=== PATIENT | male | born 1990 | race Caucasian/White ===

== ENCOUNTER 2025-10-02 10:36 | Emergency (ER) | payer OTHER, SELFPAY ==
--- NOTE | 2025-10-02 | ECG_ITS ---
Test Reason : numbness Blood Pressure : */* mmHG Vent. Rate : 65 BPM Atrial Rate : 65 BPM P-R Int : 142 ms QRS Dur : 86 ms QT Int : 384 ms P-R-T Axes : 51 59 26 degrees QTcB Int : 399 ms Normal sinus rhythm Normal ECG No previous ECGs available Referred By: Generic ED Physician Electronically Signed By: COREEN ELDER
--- NOTE | ~2025-10-02 | CT_ITS ---
EXAMINATION: CT HEAD WITHOUT CONTRAST CLINICAL INFORMATION: Left-sided weakness. COMPARISON: 02/08/2018. TECHNIQUE: Contiguous axial imaging was performed from the skull base to vertex without intravenous administration of contrast. This CT examination was performed using dose optimization techniques as appropriate, variously including the following: *Automated exposure control *Adjustment of mA and/or kV according to patient size (this includes techniques or standardized protocols for targeted exams where dose is matched to indication/reason for exam; i.e. extremities or head) *Use of iterative reconstruction technique FINDINGS: There is no evidence of intracranial hemorrhage or extra-axial fluid collection. There is no mass effect, or edema. No CT evidence of acute territorial infarct. Ventricles, sulci, and cisterns are normal in size and configuration for patient age. No hydrocephalus. No midline shift. Negative hyperdense MCA sign. Negative insular ribbon sign. There are no white matter attenuation abnormalities. Normal pituitary. Globes and orbital contents image normally. No extracranial soft tissue abnormalities. The paranasal sinuses, mastoid air cells, and tympanic cavities are normally aerated. No suspicious bony abnormalities. There are no acute fractures evident. CT/CT head/brain wo IV con IMPRESSION: No acute intracranial abnormality. Normal examination. Electronically signed by: Mina Cardozo MD 10/02/2025 02:27 PM [facility]
[2025-10-02 10:50] VITALS: BP 126/81; PULSE 68; RESP 18; TEMP 36.6; O2SAT 98; BMI 27.5
--- NOTE | 2025-10-02 10:50 | ED.GENADULT ---
[facility] - General Adult General Chief complaint: Neuro Symptoms/Deficit Stated complaint: CP, left side numbness Time Seen by Provider: 10/02/25 11:58 Source: patient Mode of arrival: ambulatory Limitations: no limitations History of Present Illness ED Provider: [facility] narrative: 35-year-old male with a history of anxiety disorder, on duloxetine, risperidone, lamotrigine, clonidine works as a delivery driver/supervisor, vapes nicotine and smokes marijuana, no other drug use hand, blurred vision in his left eye, facial numbness, this has been going on for the past 1 week, he states it is intermittent and recurring, he feels numbness and weakness in his left hand 3rd and 4th digits. He is under lot of stress Nonspecific chest pain, nonradiating not radiating to the back, not radiating to his face or shoulder not associated with nausea or vomiting or diaphoresis. No family history of heart disease or stroke at an early age reported. There is an aunt who has a stroke but later in life in the 50s Father at bedside as well, reports mom is a nurse. Related Data Allergies Allergy/AdvReac Type Severity Reaction Status Date / Time No Known Allergies Allergy Verified 10/02/25 10:53 Review of Systems Constitutional: Constitutional: Reports as per [facility] Social History Social History Smoked in Last 30 Days: No Use of substances other than those prescribed or required for medical reasons: Yes Substance Use Type: Marijuana Substance Use Frequency: Daily Advance Directives: No Advance Directives Information Provided: Yes Do you have a plan to hurt others: No Plan Physical Exam ED Exam Exam: ?General: ??looks age appropriate ?PERRLA, EOMI, MMM, Neck: Supple, no LAD ?CV: RRR, no obvious murmurs appreciated ?Resp: ?No wheezing rales rhonchi no stridor moving air well Abd: ?Bowel sounds are present, no tenderness no rebound no rigidity MSK: FROM, strength 5/5 all extremities, I did not elicit any Tinel sign over the carpal tunnel, good strength radial ulnar median motor sensory, had good strength up in his shoulders elbows wrists bilaterally as well as bilateral lower extremities Skin: Warm, dry, intact, ?Neuro: ?Alert and oriented x3, moving upper and lower extremities symmetrically, no obvious facial asymmetry noted, cranial nerves 2-12 intact, no dysmetria upper or lower extremities, pupils 3 mm reactive bilaterally Vital Signs: Vital Signs - 24 hr 10/02/25 10:50 10/02/25 12:00 Temperature 97.8 F Pulse Rate 68 56 Respiratory Rate 18 16 Blood Pressure 126/81 136/83 Pulse Oximetry 98 99 Oxygen Delivery Method Room Air Room Air BMI result Body Mass Index 27.5 Course Course Course Narrative: Rapid medical examination performed in triage by Vidhi Reddy PA-C: Patient is a 35 year old assigned male at presenting to the emergency department with left sided numbness, tingling, and weakness. Patient states symptoms started 7 days ago. Detailed physical exam and review of systems are deferred to the printing table worker. EKG and labs ordered. Patient placed back in the waiting room pending room availability and results. Medical Decision Making Medical Decision Making [facility] Narrative: 1:04 PM 10/02/2025 (Dr. Joey Love): I discussed my differential with the patient, he is otherwise healthy 35-year-old male with a some risk factors such as smoking, he does have history of anxiety and he is under lot of stress so I think there is some somatization with intermittent numbness in his face, blurry vision left arm, I believe he has components of carpal tunnel syndrome and just overall he drives and he is either sleeping on his left side with his weight on the shoulder or he is sitting with his shoulder lifted so there was some degree is compression and he has been experiencing other symptoms, with that said as I discussed with the patient I am going to perform full workup, cardiac, neurologic, I have low suspicion for stroke as his symptoms has been intermittent and his examination at this time is completely unremarkable, but if he had a small stroke he for example small stye thalamic stroke 7 days later it would be a should be visible on the CT without IV contrast. Other considerations include neck injury, brachial plexus injury, impingement of the shoulder ulnar nerve or median nerve. We spoke about lifestyle changes, smoking cessation, exercise. Differential Diagnosis Differential Diagnoses: The differential diagnosis associated with the presentation includes (Stroke, ACS, PE, peripheral neuropathy, anxiety) Admission/Observation Consideration of admission/observation: Escalation of care including admission/observation considered Lab Data [facility] Lab Attestation statement: I reviewed the patient's lab results. 10/02/25 11:09 12/05/25 11:09 Labs: Lab Results 10/02/25 Range/Units 11:09 WBC 8.1 (4.8-10.8) X10*3/uL RBC 5.40 (4.60-5.80) X10*6/uL Hgb 16.3 (14.0-18.0) g/dl Hct 49.0 (42.0-52.0) % MCV 90.7 (80.0-98.0) fL MCH 30.2 (27.0-33.0) pg MCHC 33.3 (31.0-36.0) g/dl RDW 11.8 (11.0-16.0) % Plt Count 256 (160-400) X10*3/uL MPV 9.7 (9.4-12.4) fL Immature Gran % (Auto) 0.2 (0.0-0.4) % Neut % (Auto) 70.6 (45-73) % Lymph % (Auto) 24.6 (20-40) % Gibson % (Auto) 4.3 (2-11) % Eos % (Auto) 0.2 (0-4) % Baso % (Auto) 0.1 (0-2) % Lymph # (Auto) 2.0 (1.2-4.9) X10*3/uL Gibson # (Auto) 0.4 (0.1-1.2) X10*3/uL Eos # (Auto) 0.0 (0.0-0.4) X10*3/uL Baso # (Auto) 0.0 (0.0-0.2) X10*3/uL Abs Immat Gran (auto) 0.02 (0.00-0.03) X10*3/uL Absolute Neuts (auto) 5.7 (2.0-8.3) x10*3/uL Absolute Nucleated RBC 0.000 (0.0-0.012) X10*3/uL Nucleated RBC % (auto) 0.0 (0.0-0.2) /100WBC ESR 8 (0-15) MM/HR Sodium 141 (135-145) mmol/L Potassium 4.0 (3.3-5.1) mmol/L Chloride 108 (96-108) mmol/L Carbon Dioxide 24 (22-29) mmol/L Anion Gap 13 (12-20) BUN 7 L (9-16) mg/dL Creatinine 0.95 (0.5-1.4) mg/dL Estim Creat Clear Calc 114.4 Estimated GFR > 60 Random Glucose 104 (60-115) mg/dL Calcium 10.1 (8.4-10.2) mg/dL Magnesium 2.0 (1.6-2.6) mg/dL Total Bilirubin 0.6 (0.0-1.0) mg/dL AST 28 (5-37) U/L ALT 46 H (0-40) U/L Alkaline Phosphatase 66 (39-117) U/L Troponin I High Sens < 2.7 (<3.5-35.0) ng/L C-Reactive Protein 0.30 (< or = 0.50) mg/dL Total Protein 7.9 (6.5-8.0) g/dL Albumin 5.1 H (3.5-5.0) g/dL Independent Interpretation I performed an independent interpretation of an: EKG (65 beats per minute otherwise normal ECG without dysrhythmia, AV ezio blocks or ST-T changes to suspect underlying ACS, my independent interpretation) Radiology Impression Discussion of test interpretation with radiology: I have reviewed the radiologist's reading. ( CT/CT head/brain wo IV con IMPRESSION: No acute intracranial abnormality. Normal examination.) Discharge Plan Discharge Clinical Impression: Chest pain, precordial, Dizziness, Left arm numbness Patient Disposition: Home, Self-Care Additional Instructions: Your workup has been fully reassuring including cardiac enzymes, EKG and CAT scan of the brain, including physical examination and vital signs I have discussed my considerations with gagan jane, I do believe that you were likely have a component of carpal tunnel syndrome and some compression around the shoulder and elbow and possibly of the neck from the position that you hold for prolonged periods while driving and sleeping as well We spoke about smoking cessation, exercise to help with mental health Follow up with the PCP any other issues or concerns come back to the ER You can take ibuprofen 400 mg every 6 hours around the clock for the next few days just to get inflammation under control in your joints Print Language: Egyptian
[2025-10-02 11:15] LABS: MANUAL DIFF FLAG NO
[2025-10-02 11:17] LABS: Hematocrit 49.0 % (42.0-52.0); Hemoglobin 16.3 g/dl (14.0-18.0); Imm Gran Abs Auto 0.02 X10*3/uL (0.00-0.03); Imm Gran Pct Auto 0.2 % (0.0-0.4); Lymphocytes Absolute Auto 2.0 X10*3/uL (1.2-4.9); Mean Corpuscular HGB Conc 33.3 g/dl (31.0-36.0); Mean Corpuscular Hemoglobin 30.2 pg (27.0-33.0); Mean Corpuscular Volume 90.7 fL (80.0-98.0); NRBC Abs Auto 0.000 X10*3/uL (0.0-0.012); NRBC Pct Auto 0.0 /100WBC (0.0-0.2); Platelet Count 256 X10*3/uL (160-400); Red Blood Count 5.40 X10*6/uL (4.60-5.80); White Blood Count 8.1 X10*3/uL (4.8-10.8)
[2025-10-02 11:29] LABS: Alanine Aminotransferase 46 U/L (0-40); Albumin Level 5.1 g/dL (3.5-5.0); Alkaline Phosphatase 66 U/L (39-117); Anion Gap 13 (12-20); Aspartate Amino Transferase 28 U/L (5-37); Blood Urea Nitrogen 7 mg/dL (9-16); Calcium 10.1 mg/dL (8.4-10.2); Carbon Dioxide 24 mmol/L (22-29); Chloride 108 mmol/L (96-108); Creatinine Clr Calc Pharmacy 114.4; Estimated Glomerular Filt Rate > 60; Magnesium 2.0 mg/dL (1.6-2.6); Potassium 4.0 mmol/L (3.3-5.1); Sodium 141 mmol/L (135-145); Total Protein 7.9 g/dL (6.5-8.0)
[2025-10-02 11:36] LABS: Troponin-I High Sensitivity < 2.7 ng/L (<3.5-35.0)
[2025-10-02 11:59] LABS: Erythrocyte Sedimentation Rate 8 MM/HR (0-15)
[2025-10-02 12:00] VITALS: BP 136/83; PULSE 56; RESP 16; O2SAT 99
--- OUTSIDE RECORDS SUMMARY | 2025-10-02 13:39 | XMS_ITS ---
Author Name [facility] Organization Unknown Care Team Organization Name Specialty Phone Email Start Date End Da te [facility] LUIS ALBERTO ROCHE Primary Care 04/06/2023 06/16/2024 [facility] Priyank Sabillon DO Primary Care 09/05/202205/29
--- OUTSIDE RECORDS SUMMARY | 2025-10-02 13:39 | XMS_ITS | Clinical Summary ---
Author Organization [facility] [address] [place] [address] [place] [phone] Phone Care Team Providers Care Environmental Programs Manager Name Role Phone Eduardo Carballo MD Primary Care Provider Allergies Active Allergy Reactions Criticality Noted Date Comments Pollen Extracts Headache 11/30/2011 Medications citalopram (CeleXA) 20 mg tablet Take 1 Tablet by mouth daily. 02/20/2023 Active fluticasone propionate (FLONASE) 50 mcg/actuation nasal spray 2 Sprays by Nasal route daily. 01/28/2024 Active lamoTRIgine (LaMICtal) 100 mg tablet Take 1 Tablet by mouth 2 times daily. 02/20/2023 Active propranoloL (INDERAL) 40 mg tablet Take 1 Tablet by mouth daily. Active risperiDONE (RisperDAL) 0.25 mg tablet Take 1 Tablet by mouth 2 times daily. 02/20/2023 Active rosuvastatin (CRESTOR) 10 mg tablet Take 1 tablet (10 mg total) by mouth 1 (one) time each day. 90 tablet 1 04/29/2025 Active Active Problems Problem Noted Date Diagnosed Date Mixed hyperlipidemia 08/15/2023 Bipolar disease, chronic (CMS/HCC V24, CMS/HCC V 28) 02/20/2023 Hepatic hemangioma 12/25/2016 Overview (10/17/2024): 2.3 x 1.7 x 1.6 cm Needs repeat ultrasound 05/2017 Repeat US in 2018 was normal Depression with anxiety 11/30/2011 Immunizations Immunization Administration Dates Next Due DTP 03/30/1994, 1,01/27/1990,1989,1989 Hepatitis B (Lsopqzl-H-Enhmd , Recombivax HB-Adult) 19yo and older 01/25/2001,08/27/2000,07/27/2000 Influenza trivalent, 0.5mL, preservative free (Fluarix; FluLaval; Fluzone) ages 6mo and older (Afluria) 3 years and older 08/18/2024,08/19/2015,08/03/2014 MMR, measles mumps and rubel la Live (Priorix; M-M-R II) 12mo and older 03/05/1995,01/27/1991 OPV 03/30/1994, 1,1989,1988 PPD Test 03/30/1994,08/29/1990 Pfizer SARS-CoV-2 COVID-19, mRNA, LNP-S, preservative free 08/02/2021 Td Tetanus diptheria (Tdvax) 7yo and older 02/14/2024,07/27/2000 Tdap Tetanus diptheria acell ular pertussis (Boostrix; Adacel) 7yo and older 11/30/2011 Varicella live (Varivax) 12m o and older 06/11/2013,01/27/1995 Surgical History Surgery Date Site/Laterality Comments TONSILLECTOMY PROCEDURE: HISTORICAL TONSILLECTOMY Family History Medical History Relation Name Comments Hyperlipidemia Father Other cancer Father testicular ca Relation Name Status Comments Father Alive Mother Alive Social History Tobacco Use Types Packs/Day Years Used Date Smoking Tobacco: Never Smokeless Tobacco: Never Tobacco Cessation:Counseling Given: Not Answered Alcohol Use Standard Drinks/Week Comments Yes 0 (1 standard drink = 0.6 oz pur e alcohol) Housing Instability Answer Date Recorde d Are you worried that in the next 2 months you may not have stable housing? No 04/29/2025 Food Access & Nutrition Answer Date Rec orded Do you have access to a vari ety of food including fruits and vegetables? Yes 04/29/2025 Access to Healthcare Answer Date Record ed Within the last 3 months, ho w many times did you visit the emergency department for your medical care? 0 04/29/2025 Health Literacy Answer Date Recorded How often do you need to hav e someone help you when you read instructions, pamphlets, or other written material from your doctor or pharmacy? Never 04/29/2025 Caregiver: How often do you need to have someone help you when you read instructions, pamphlets, or other written material from your doctor or pharmacy? Not on file 04/29/2025 Financial Risk Answer Date Recorded How hard is it for you to pa y for the very basics like food, housing, medical care, and air conditioning / heating? Not very hard 04/29/2025 Transportation Answer Date Recorded Has the lack of transportati on kept you from meetings, work, or from getting things needed for daily living? No Has the lack of transportati on kept you from medical appointments or from getting medications? No 04/29/2025 Food Risk Answer Date Recorded Within the past 12 months we worried whether our food would run out before we got money to buy more. Never true 04/29/2025 Within the past 12 months th e food we bought just didn't last and we didn't have money to get more. Never true 04/29/2025 Dependent Care Answer Date Recorded Do you need help finding or paying for care for your loved ones. For example, school child care attendant or elderly care for an older adult? No 04/29/2025 Education Answer Date Recorded Do you think completing more education or training, like finishing a GED, going to college, or learning a trade, would be helpful for you? No 04/29/2025 Employment and Income Answer Date Recor ded During the last four weeks, have you been actively looking for work? No 04/29/2025 Living Situation Answer Date Recorded What is your living situation? Unrecognized valu e 04/29/2025 Sex and Gender Information Value Date Recorded Sex Assigned at Not on file Legal Sex Male 5:22 PM EST Gender Identity Not on file Sexual Orientation Not on file Obstetrics History Last Filed Vital Signs Vital Sign Reading Time Taken Comments Blood Pressure 115/80 04/29/2025 10:57 AM EDT Pulse 69 04/29/2025 10:57 AM EDT Temperature 36.6 C (97.8 F) 04/29/2025 10:57 AM EDT Respiratory Rate 16 04/29/2025 10:57 AM EDT Oxygen Saturation 97% 04/29/2025 10:57 AM EDT Inhaled Oxygen Concentration - - Weight 88 kg (194 lb) 04/29/2025 10:57 AM EDT Height 180.3 cm (5' 11 ) 04/29/2025 10:57 AM EDT Body Mass Index 27.06 04/29/2025 10:57 AM EDT Plan of Treatment Health Maintenance Due Date Last Done Comments HPV Vaccines (1 - 3-dose SCDM series) 2016 COVID-19 Vaccine ( season) 2025 08/02/2021, 07/12/2021 Influenza Vaccine (#1) 2025 , 08/19/2015, 08/03/2014 Social Influencers of Health Screening 04/29/2026 04/29/2025 Cholesterol Screening (Lipid Panel) 04/29/2030 04/29/2025, 08/18/2024, 08/18/2024, Additional history exists DTaP,Tdap,and Td Vaccines (8 - Td or Tdap) 02/13/2034 02/14/2024, 11/30/2011, 07/27/2000, Additional history exists RSV Immunization Adult Patients (1 - 1-dose 75+ series) 2064 IPV Vaccines Completed 03/30/1994, 10/1990, 1989, Additional history exists MMR Vaccines Completed 03/05/1995, 01/27/1991 Hepatitis B Vaccines Completed 01/25/2001, 08/27/2000, 07/27/2000 Varicella Vaccines Aged Out 06/11/2013, 01/27/1995 No longer eligible based on patient's age to complete this topic HIV Screening Completed 08/19/2015 Hepatitis C Screening Completed 08/19/2015 Depression Screening Completed 04/29/2025, 02/14/20 24 HIB Vaccines Aged Out No longer eligi ble based on patient's age to complete this topic Hepatitis A Vaccines Aged Out No long er eligible based on patient's age to complete this topic Meningococcal ACWY Vaccine Aged Out N o longer eligible based on patient's age to complete this topic Meningococcal B Vaccine Aged Out No l onger eligible based on patient's age to complete this topic Pneumococcal Vaccine: Pediatrics (0 to 5 Years) and At-Risk Patients (6 to 49 Years) Aged Out No longer eligible based on patient's age to complete this topic RSV Immunization Patients Under 20 months Aged Out No longer eligible based on patient's age to complete this topic Procedures Procedure Name Priority Date/Time Associated Diagnosis Comments LIPID PANEL WITH REFLEX TO DIRECT LDL Routine 04/29/2025 11:45 AM EDT Mixed hyperlipidemia DEPRESSION SCREENING Routine 02/14/2024 HEPATITIS C SCREENING Routine 08/19/2015 HIV SCREENING Routine 08/19/2015 from Last 3 Months or Most Recently Relevant to Health Maintenance Results * Lipid panel with reflex to direct LDL (04/29/2025 11:45 AM EDT) Cholesterol 176 0 - 200 mg/dL LAB CHEMISTRY METHOD 04/29/2025 4:29 PM EDT [facility] Triglycerides 100 0 - 150 mg/dL LAB CHEMISTRY METHOD 04/29/2025 4:29 PM EDT [facility] HDL 58 >=40 mg/dL LAB CHEMISTRY METHOD 04/29/2025 4:29 PM [facility] LDL Calculated 98 0 - 100 mg/dL LAB CHEMISTRY METHOD 04/29/2025 4:29 PM [facility] VLDL Cholesterol Dagoberto 20 mg/dL LAB CHEMISTRY METHOD 04/29/2025 4:29 PM [facility] Non HDL Chol. (LDL+VLDL) 118 <145 mg/dL LAB CHEMISTRY METHOD 04/29/2025 4:29 PM [facility] Chol/HDL Ratio 3.0 0.0 - 4.4 LAB CHEMISTRY METHOD 04/29/2025 4:29 PM [facility] Blood Venous blood specimen / Unknown Venipuncture / Unknown 04/29/2025 11:45 AM EDT 04/29/2025 11:45 AM EDT Eduardo Carballo MD LAB BLOOD ORDERABLES F inal Result [facility] [address] [place] [address], [place] [phone] * Depression Screening (02/14/2024) Depression Screening abstracted Historical Provider HEALTH MAINTENANCE Final Result * HIV Screening (08/19/2015) HIV Screening abstracted Historical Provider HEALTH MAINTENANCE Final Result * Hepatitis C Screening (08/19/2015) Hepatitis C Screening abstracted Historical Provider HEALTH MAINTENANCE Final Result from Last 3 Months or Most Recently Relevant to Health Maintenance Insurance [facility] [employer] Care Teams Environmental Programs Manager Relationship Specialty Start Date End Date Eduardo Carballo MD [address] [place], [place] PCP - General 11/03/22
[2025-10-02 14:35] VITALS: BP 116/74; PULSE 70; RESP 20; O2SAT 99
[2025-10-02 14:40] VITALS: BP 116/74; PULSE 70; RESP 20; TEMP 36.8; O2SAT 99
== END 2025-10-02 14:44 | disposition home or self-care (01) ==
PROVIDERS: Physician Assistant Medical; Emergency Provider Emergency Medicine
DX: R07.89 Other chest pain (principal); R20.0 Anesthesia of skin; H53.8 Other visual disturbances; R42 Dizziness and giddiness; F12.90 Cannabis use, unspecified, uncomplicated; Z72.0 Tobacco use
CPT/HCPCS: 36415; 70450; 80053; 83735; 84484; 85025; 85652; 86140; 93005; 99285

== ENCOUNTER → 2025-10-02 10:42 | Outpatient (BNV) | payer OTHER, SELFPAY | PROVIDERS: Emergency Provider Emergency Medicine; Visit Provider Internal Medicine | DX: R20.2 Paresthesia of skin (principal) | CPT/HCPCS: 93010 ==

== ENCOUNTER → 2025-10-02 12:25 | Outpatient (BNV) | payer OTHER, SELFPAY | PROVIDERS: Emergency Provider Emergency Medicine; Visit Provider Radiology Diagnostic Radiology | DX: R53.1 Weakness (principal) | CPT/HCPCS: 70450 ==